=== PATIENT | female | born 1960 | race Two or more races ===

== ENCOUNTER 2019-12-07 07:18 | Outpatient (CLI) | payer OTHER ==
[~2019-12-07 07:18] MED LIST: CARDIZEM120 MG PO; OSEL75CA PO; PLAVIX75 MG PO; PROMETHAZINE W118 ML PO; PROVENTIL3 ML/2.5 M IH; TENORMIN50 MG PO
== END 2019-12-07 07:52 | disposition home or self-care (01) ==
LOC: NUCLEAR 07:18
DX: G45.8 Other transient cerebral ischemic attacks and related syndromes (principal)

== ENCOUNTER 2021-09-17 10:35 | Outpatient (CLI) | payer OTHER | END 2021-09-17 10:39 | disposition home or self-care (01) | LOC: TOM 10:35 | PROVIDERS: ATTEND Internal Medicine Cardiovascular Disease | DX: R22.1 Localized swelling, mass and lump, neck (principal) ==

== ENCOUNTER 2023-09-01 10:06 | Outpatient (CLI) | payer OTHER | END 2023-09-01 10:14 | disposition home or self-care (01) | LOC: RAD 10:06 | PROVIDERS: ATTEND Internal Medicine Cardiovascular Disease | DX: M12.9 Arthropathy, unspecified (principal) ==

== ENCOUNTER 2023-09-05 13:00 | Emergency (ER) | payer OTHER ==
[~2023-09-05] VITALS: Ht 162.6 cm; Wt 68.0 kg
[2023-09-05] MEDS ORDERED: LASIX20 MG (13:49)
[2023-09-05] MEDS ORDERED: ZYRTEC10 MG (13:50)
[2023-09-05] MEDS ORDERED: SYNTHROID50 MCG (13:51)
[2023-09-05 15:34] LABS: HEMATOCRIT 39.3 % (36.0-45.00); HEMOGLOBIN 13.1 g/dL (12.0-15.00); MEAN CELL VOLUME 89.5 fL (80.00-100.00); MEAN CORPUSCULAR HEMOGLOBIN 29.9 pg (27.00-32.0); MEAN CORPUSCULAR HGB CONC 33.4 g/dl (32.0-36.0); PLATELET COUNT 268 K/uL (150-450); RED BLOOD COUNT 4.39 M/uL (4.00-6.00); RED CELL DISTRIBUTION WIDTH 13.9 % (11.5-14.5)
[2023-09-05 15:56] LABS: ALBUMIN 3.7 gm/dL (3.4-5.0); BILIRUBIN TOTAL 0.33 mg/dL (0.3-1.2); CALCIUM 8.8 mg/dL (8.5-10.1); CREATININE SERUM 0.76 mg/dL (0.55-1.02); GFR 76.86; POTASSIUM 3.57 mEq/L (3.5-5.1); TOTAL PROTEIN 7.7 gm/dL (6.4-8.2)
[2023-09-05 15:57] LABS: PARTIAL THROMBOPLASTIN TIME 29.9 SECONDS (22.0-34.0); PROTHROMBIN TIME 10.5 SECONDS (9.0-11.5)
[2023-09-05 15:58] LABS: URINE APPEARANCE Clear; URINE BILIRRUBIN Negative (NEGATIVE); URINE BLOOD Negative; URINE COLOR Yellow; URINE GLUCOSE Negative (NEGATIVE); URINE LEUKOCYTE Negative; URINE NITRATE Negative; URINE PROTEIN Negative (NEGATIVE); URINE UROBILINOGEN 0.2 E.U./dl
[2023-09-05 16:00] LABS: URINE BACTERIA 25.1 uL (0.0-1933); URINE EPITHELIAL CELLS 2.4 uL (0.0-38.8); URINE RBC 77.4 uL (0.0-20.8); URINE WBC 4.6 uL (0.0-23.2)
== END 2023-09-05 17:19 | disposition home or self-care (01) ==
LOC: ER 13:00
PROVIDERS: Emergency Medicine
DX: R10.2 Pelvic and perineal pain (principal); M25.552 Pain in left hip; Z88.8 Allergy status to other drugs, medicaments and biological substances

== ENCOUNTER 2025-02-08 12:24 | Outpatient (CLI) | payer OTHER ==
[~2025-02-08 12:24] MED LIST changes: +LASIX20 MG; +SYNTHROID50 MCG; +ZYRTEC10 MG
[2025-02-08 13:08] LABS: HEMATOCRIT 35.9 % (36.0-45.00); HEMOGLOBIN 11.9 g/dL (12.0-15.00); MEAN CELL VOLUME 87.3 fL (80.00-100.00); MEAN CORPUSCULAR HEMOGLOBIN 28.9 pg (27.00-32.0); MEAN CORPUSCULAR HGB CONC 33.1 g/dl (32.0-36.0); PLATELET COUNT 300 K/uL (150-450); RED BLOOD COUNT 4.11 M/uL (4.00-6.00); RED CELL DISTRIBUTION WIDTH 13.3 % (11.5-14.5)
[2025-02-08 14:18] LABS: CALCIUM 9.1 mg/dL (8.5-10.1); CREATININE SERUM 0.68 mg/dL (0.55-1.02); GFR 87.11; POTASSIUM 3.89 mEq/L (3.5-5.1)
== END 2025-02-08 12:33 | disposition home or self-care (01) ==
LOC: LAB 12:24
PROVIDERS: ATTEND Internal Medicine Gastroenterology
DX: R10.13 Epigastric pain (principal); R19.7 Diarrhea, unspecified

== ENCOUNTER 2025-02-16 08:36 | Outpatient (CLI) | payer OTHER ==
[~2025-02-16 08:36] MED LIST changes: +ATENOLOL25 MG PO; +CALAN80 MG PO; +CARDIZEM30 MG PO; +DULCOLAX5 MG PO; +FIORICET 50-301 EACH PO; +FOLIC ACID1 MG PO; +MEDROLPACK PO; +METOPROLOL SUCC25 MG PO; +NTS1 EACH TD; +ORPH100T PO; +PERCOCET 5/3251 TAB PO; +PROBIOTIC1 EAC2 PO; +PROTONIX40 MG PO; +SENOKOT8.6 M1 PO; +SYNTHROID50 MCG PO; +ZANTAC300 MG PO; +ZYRTEC10 MG PO
== END 2025-02-16 08:50 | disposition home or self-care (01) ==
LOC: TOM 08:36
PROVIDERS: ATTEND Internal Medicine Gastroenterology
DX: R19.5 Other fecal abnormalities (principal)